=== PATIENT | male | born 1960 | race Caucasian/White ===

== ENCOUNTER 2017-08-03 07:06 | Emergency (ER) | payer BC ==
[2017-08-03] MEDS ORDERED: NS 0.9% 1000 ML* 1,000 ML IV ONE (07:22)
[2017-08-03 07:47] LABS: ABS Basophils 0 10^3/ul (0-0.2); ABS Eosinophils 0.3 10^3/ul (0-0.6); ABS Lymphocytes 1.5 10^3/ul (1.0-4.8); ABS Monocytes 0.8 10^3/ul (0-0.8); ABS Neutrophils 4.6 10^3/ul (1.5-7.7); ABS Nucleated RBC 0 10^3/ul; Eosinophil % 4.6 % (0-6); Hematocrit 43 % (42-52); Hemoglobin 14.9 g/dl (14.0-18.0); Lymphocyte % 21.3 % (25-47); Mean Corpuscular HGB Conc 34 g/dl (31-36); Mean Corpuscular Hemoglobin 31 pg (27-31); Mean Corpuscular Volume 90 fL (80-94); Mean Platelet Volume 8 um3 (7.4-10.4); Nucleated Red Blood Cells % 0; Platelet Count 229 10^3/ul (150-450); Red Blood Count 4.82 10^6/ul (4.0-5.4); Red Cell Distribution Width 13 % (10.5-15); White Blood Count 7.3 10^3/ul (3.5-10.8)
[2017-08-03 08:01] LABS: INR 0.92 (0.77-1.02)
[2017-08-03] MEDS ORDERED: Ibuprofen TAB* 800 MG PO ONE (08:15)
--- NOTE | 2017-08-03 08:34 | RAD ---
HISTORY: Chest pain, shortness of breath COMPARISONS: February 28, 2004 VIEWS: 4: Frontal dual-energy and lateral views of the chest. FINDINGS: CARDIOMEDIASTINAL SILHOUETTE: The cardiomediastinal silhouette is normal. ALFREDO: The alfredo are normal. PLEURA: The costophrenic angles are sharp. No pleural abnormalities are noted. LUNG PARENCHYMA: The lungs are clear. ABDOMEN: The upper abdomen is clear. There is no subphrenic gas. BONES AND SOFT TISSUES: Degenerative changes are noted OTHER: None. IMPRESSION: NO ACTIVE CARDIOPULMONARY DISEASE.
[2017-08-03 09:32] LABS: Urine Appearance Clear; Urine Color Yellow
[2017-08-03 09:33] LABS: Urine Blood Negative (Negative); Urine Ketones Negative (Negative); Urine Protein Negative (Negative); Urine Specific Gravity 1.015 (1.010-1.030); Urine Urobilinogen Negative (Negative)
[2017-08-03 09:51] LABS: EGFR Non-African American 86.8 (>60)
[2017-08-03 12:17] VITALS: BP 123/79
--- NOTE | 2017-08-03 19:52 | ED ---
Kvng Salvador Angela, scribed for Anna Nassar MD on 08/03/17 at 0820 . HPI Chest Pain - HPI Summary HPI Summary: This pt is a 56 y/o male, accompanied by his , presenting to [facility] for chest pain x2 weeks. Pt describes his pain under his left breast anteriorly. Pt notes his pain is aggravated with deep breaths. He describes it as feeling "like a broken rib or cartilage" and "like a nerve muscle." Pt states that in the shower today he couldn't breathe. reports that around [place] time, pt was lifting a tool box and additionally states the pt yesterday was pulling with both hands the starter cord of a snow mobile. Pt denies abd pain, cough, rhinorrhea, sinus pain, cold symptoms. Denies calf pain or edema. Pt reports he has been gaining weight lately. He denies smoking. Pt denies hx of blood clots. PMHx: prostate CA, eczema. Pt has Dupixent injections for eczema. He additionally takes anti-histamines, probiotics, and Cilias as needed. The last time he took Cialis was 3 days ago. Surgeries: prostate CA removed a couple of years ago. Allergic to Penicillin (reaction was rash). - History of Current Complaint Chief Complaint: EDGeneral Time Seen by Provider: 08/03/17 07:21 Hx Obtained From: Patient, Family/Operator [employer] - Onset/Duration: Started Weeks Ago, Still Present Timing: Constant, Lasting Weeks Initial Severity: Mild Current Severity: Mild Pain Intensity: 2 Pain Scale Used: 0-10 Numeric Chest Pain Location: Left Anterior Chest Pain Radiates: No Character: Other: - "broken rib cage or cartilage" "nerve muscle" Aggravating Factor(s): Deep Breaths Alleviating Factor(s): Nothing Associated Signs and Symptoms: Positive: Chest Pain. Negative: Swelling, Fever , Cough, Abdominal Pain, Calf Pain/Swelling, URI - Allergy/Home Medications Allergies/Adverse Reactions: Allergies Allergy/AdvReac Type Severity Reaction Status Date / Time Penicillins Allergy Unknown Unknown Verified 05/14/16 07:44 Reaction Details PMH/Surg Hx/FS Hx/Imm Hx Endocrine/Hematology History: Denies: Hx Diabetes, Hx Thyroid Disease Cardiovascular History: Denies: Hx Hypertension Respiratory History: Reports: Hx Asthma - He has been on inhalers in the past for bronchospasm. Denies: Hx Chronic Obstructive Pulmonary Disease (COPD), Hx Lung Cancer, Hx Pneumonia, Hx Pulmonary Embolism GI History: Denies: Hx Gall Bladder Disease, Hx Gastrointestinal Bleed, Hx Ulcer, Hx Urosepsis History: Denies: Hx Kidney Stones, Hx Renal Disease Neurological History: Denies: Hx Dementia, Hx Migraine, Hx Seizures, Hx Transient Ischemic Attacks (TIA) Psychiatric History: Denies: Hx Anxiety, Hx Depression, Hx Schizophrenia, Hx Bipolar Disorder - Cancer History Cancer Type, Location and Year: prostate c/a 2014 - Surgical History Surgery Procedure, Year, and Place: protate CA removal surgery 2014 Infectious Disease History: No Infectious Disease History: Denies: Hx Clostridium Difficile, Hx Hepatitis, Hx Human Immunodeficiency Virus (HIV), Hx of Known/Suspected MRSA, Hx Shingles, Hx Tuberculosis, Hx Known/ Suspected VRE, Hx Known/Suspected VRSA, History Other Infectious Disease, Traveled Outside the [place] in Last 30 Days - Family History Known Family History: Positive: Cardiac Disease, Diabetes - Social History Alcohol Use: Daily Alcohol Amount: 3-4 beers Substance Use Type: Reports: None Smoking Status (MU): Former Smoker Length of Time of Smoking/Using Tobacco: 20 YEARS Have You Smoked in the Last Year: No Review of Systems Constitutional: Other - weight gaining Negative: Fever, Chills Eyes: Negative ENT: Negative Negative: Nasal Discharge Positive: Chest Pain Negative: Cough Negative: Abdominal Pain Negative: Edema, Other - calf pain All Other Systems Reviewed And Are Negative: Yes Physical Exam - Summary Physical Exam Summary: Appearance: Well-appearing, moderate pain distress, Well-nourished Skin: Warm, color reflects adequate perfusion Head: Normal Head/Face inspection Eyes: Conjunctiva clear ENT: Normal ENT inspection Neck: Supple, no nodes, no JVD Respiratory: Lungs clear, Normal breath sounds, no respiratory distress Cardio: RRR, No murmur, pulses normal, brisk capillary refill Chest: pain is not reproducible, pt indicates his pain is under the 5th rib. Abdomen: soft, nontender Bowel sounds: present Musculoskeletal: Strength Intact/ ROM intact. No calf tenderness. 2+ pitting edema bilaterally. Neuro: Alert, muscle tone normal, facial symmetry, speech normal, sensory/motor intact Psychological: Normal Triage Information Reviewed: Yes Vital Signs On Initial Exam: Initial Vitals Temp Pulse Resp BP Pulse Ox 98.6 F 74 16 129/80 94 08/03/17 07:12 08/03/17 07:12 08/03/17 07:12 08/03/17 07:12 08/03/17 07:12 Vital Signs Reviewed: Yes - Nafisa Coma Scale Coma Scale Total: 15 Diagnostics - Vital Signs Vital Signs Temp Pulse Resp BP Pulse Ox 08/03/17 07:40 67 12 123/79 96 08/03/17 07:27 97 08/03/17 07:20 71 96 08/03/17 07:12 98.6 F 74 16 129/80 94 - Laboratory Lab Results: Lab Results 08/03/17 08/03/17 08/03/17 Range/Units 07:34 07:34 07:34 WBC 7.3 (3.5-10.8) 10^3/ul RBC 4.82 (4.0-5.4) 10^6/ul Hgb 14.9 (14.0-18.0) g/dl Hct 43 (42-52) % MCV 90 (80-94) fL MCH 31 (27-31) pg MCHC 34 (31-36) g/dl RDW 13 (10.5-15) % Plt Count 229 (150-450) 10^3/ul MPV 8 (7.4-10.4) um3 Neut % (Auto) 62.8 (38-83) % Lymph % (Auto) 21.3 L (25-47) % [place] % (Auto) 10.8 H (1-9) % Eos % (Auto) 4.6 (0-6) % Baso % (Auto) 0.5 (0-2) % Absolute Neuts (auto) 4.6 (1.5-7.7) 10^3/ul Absolute Lymphs (auto) 1.5 (1.0-4.8) 10^3/ul Absolute Monos (auto) 0.8 (0-0.8) 10^3/ul Absolute Eos (auto) 0.3 (0-0.6) 10^3/ul Absolute Basos (auto) 0 (0-0.2) 10^3/ul Absolute Nucleated RBC 0 10^3/ul Nucleated RBC % 0 INR (Anticoag Therapy) 0.92 (0.77-1.02) APTT 28.7 (26.0-36.3) seconds D-Dimer, Quantitative < 200 (Less Than 230) ng/mL Sodium 137 (133-145) mmol/L Potassium 3.8 (3.5-5.0) mmol/L Chloride 106 (101-111) mmol/L Carbon Dioxide 26 (22-32) mmol/L Anion Gap 5 (2-11) mmol/L BUN 13 (6-24) mg/dL Creatinine Pending Est GFR ( Amer) Pending Est GFR (Non-Af Amer) Pending BUN/Creatinine Ratio Pending Glucose 99 (70-100) mg/dL Lactic Acid (0.5-2.0) mmol/L Calcium 9.1 (8.6-10.3) mg/dL Total Bilirubin 0.60 (0.2-1.0) mg/dL AST 23 (13-39) U/L ALT 21 (7-52) U/L Alkaline Phosphatase 58 (34-104) U/L Total Creatine Kinase 154 (10-223) U/L CK-MB (CK-2) Pending Troponin I 0.00 (<0.04) ng/mL C-Reactive Protein 3.45 (< 5.00) mg/L Total Protein 6.7 (6.4-8.9) g/dL Albumin 4.0 (3.2-5.2) g/dL Globulin 2.7 (2-4) g/dL Albumin/Globulin Ratio 1.5 (1-3) Influenza A (Rapid) (Negative) Influenza B (Rapid) (Negative) 08/03/17 08/03/17 Range/Units 07:34 07:42 WBC (3.5-10.8) 10^3/ul RBC (4.0-5.4) 10^6/ul Hgb (14.0-18.0) g/dl Hct (42-52) % MCV (80-94) fL MCH (27-31) pg MCHC (31-36) g/dl RDW (10.5-15) % Plt Count (150-450) 10^3/ul MPV (7.4-10.4) um3 Neut % (Auto) (38-83) % Lymph % (Auto) (25-47) % [place] % (Auto) (1-9) % Eos % (Auto) (0-6) % Baso % (Auto) (0-2) % Absolute Neuts (auto) (1.5-7.7) 10^3/ul Absolute Lymphs (auto) (1.0-4.8) 10^3/ul Absolute Monos (auto) (0-0.8) 10^3/ul Absolute Eos (auto) (0-0.6) 10^3/ul Absolute Basos (auto) (0-0.2) 10^3/ul Absolute Nucleated RBC 10^3/ul Nucleated RBC % INR (Anticoag Therapy) (0.77-1.02) APTT (26.0-36.3) seconds D-Dimer, Quantitative (Less Than 230) ng/mL Sodium (133-145) mmol/L Potassium (3.5-5.0) mmol/L Chloride (101-111) mmol/L Carbon Dioxide (22-32) mmol/L Anion Gap (2-11) mmol/L BUN (6-24) mg/dL Creatinine Est GFR ( Amer) Est GFR (Non-Af Amer) BUN/Creatinine Ratio Glucose (70-100) mg/dL Lactic Acid 1.3 (0.5-2.0) mmol/L Calcium (8.6-10.3) mg/dL Total Bilirubin (0.2-1.0) mg/dL AST (13-39) U/L ALT (7-52) U/L Alkaline Phosphatase (34-104) U/L Total Creatine Kinase (10-223) U/L CK-MB (CK-2) Troponin I (<0.04) ng/mL C-Reactive Protein (< 5.00) mg/L Total Protein (6.4-8.9) g/dL Albumin (3.2-5.2) g/dL Globulin (2-4) g/dL Albumin/Globulin Ratio (1-3) Influenza A (Rapid) Negative (Negative) Influenza B (Rapid) Negative (Negative) Result Diagrams: 08/03/17 07:34 08/03/17 07:34 Lab Statement: Any lab studies that have been ordered have been reviewed, and results considered in the medical decision making process. - Radiology Chest XR Xray Interpretation: No Acute Changes - IMPRESSION: No active cardiopulmonary disease. Dr. Nassar has reviewed this radiology report. Radiology Interpretation Completed By: Radiologist - EKG 07:46 Cardiac Rate: NL EKG Rhythm: Sinus Rhythm - at [address] Segment: Normal Ectopy: None EKG Interpretation: Nml AVIVCT. Nml QTc. Nml axis. EKG Comparison: Other - no prior to compare. Re-Evaluation - Re-Evaluation First Eval Re-Evaluation Time: 11:45 Comment: I reviewed chest XR and lab results with the pt and . Pt has 2+ pitting edema bilaterally. Chest Pain Course/Dx - Course Course Of Treatment: Pt medications reviewed this visit. In the ED course the pt was given IV fluids and ibuprofen. Chest XR is negative. Labs shows BNP of 494. I discussed pt care with Dr. Menjivar (pt's PCP), who will arrange outpatient work up for elevated BNP. Pt will be discharged home with carisoprodol. He is instructed to follow up with his PCP. Pt was algo given a work note. - Diagnoses Provider Diagnoses: Chest pain - Provider Notifications Discussed Care Of Patient With: Myron Menjivar Time Discussed With Above Provider: 11:53 Instructed by Provider To: Other - I discussed pt care with Dr. Menjivar, pt's PCP , who will arrange outpatient work up for elevated BNP. Discharge - Discharge Plan Condition: Stable Disposition: HOME Prescriptions: Carisoprodol TAB* [Soma TAB*] 350 mg PO TID PRN #12 tab MDD 3 PRN Reason: Pain Patient Education Materials: Chest Pain (ED) Forms: *Work Release Referrals: Myron Menjivar MD [Primary Care Provider] - 2 Days Additional Instructions: You may try the Soma to see if it helps your pain, since it has helped in the past. We have given you a copy of your labs. We talked with Dr. Menjivar. He will see you this week. Call the office for an appt. Return to the ER if you have any new or worsening symptoms. RETURN TO THE EMERGENCY DEPARTMENT FOR ANY NEW OR WORSENING SYMPTOMS. The documentation as recorded by the Kvng perez Angela accurately reflects the service I personally performed and the decisions made by me, Anna Nassar MD.
== END 2017-08-03 12:16 | disposition home or self-care (01) ==
LOC: ED 07:06
DX: R07.9 Chest pain, unspecified (principal); Z87.891 Personal history of nicotine dependence
CPT/HCPCS: 36415; 71046; 80053; 81003; 82550; 82553; 83605; 83880; 84484; 85025; 85379; 85610; 85730; 86140; 87502; 93005; 99283; A9270-GY

== ENCOUNTER 2017-09-12 10:41 | Emergency (ER) | payer BC | END 2017-09-12 11:13 | disposition left against medical advice (07) | LOC: UCEAST 10:41 | DX: J06.9 Acute upper respiratory infection, unspecified (principal); Z53.21 Procedure and treatment not carried out due to patient leaving prior to being seen by health care provider ==

== ENCOUNTER 2019-06-10 08:38 | Emergency (ER) | payer BC ==
--- OUTSIDE RECORDS SUMMARY | 2019-06-10 08:44 | XMS REPORT | Continuity of Care Document ---
:1960 External Reference #:[id number] Author Name Myron Menjivar M.D. (transmitted by agent of provider Tabitha Ag) Address [address] [facility], [place] [address] Care Team Providers Name Role Phone Myron Menjivar III, MD - Internal Care Team Information [facility] Hemanth Lawrence MD - Physical Care Team Information [facility] Problems Active Problems Provider Date Gastroesophageal reflux disease Myron Menjivar M.D. Onset: 11/11/2011 Social History Type Date Description Comments Sex Unknown Smokeless Tobacco quit June 2011 ETOH Use Drinks Alcoholic Beverages Occasionally Tobacco Use Start: Unknown End: Patient is a former smoker quit 2002. Unknown Smoking Status Reviewed: 06/02/19 Patient is a former smoker quit 2002. Allergies, Adverse Reactions, Alerts Active Allergies Reaction Severity Comments Date Penicillin 04/28/2011 Medications Active Medications SIG Qnty Indications Ordering Provider Date Probiotic Acidophilus 1 by mouth once Unknown a day Capsules Acetaminophen Extra as needed Unknown Strength 500mg Tablets Advil 2 every 4 hours Unknown 200mg Capsules prn Dupixent Unknown 300mg/2ML Soln Prefill Syringe Benzonatate one by mouth 14caps Myron Menjivar, 200mg Capsules three times M.D. daily as needed for cough Influenza Virus Vaccine Unknown Injection Immunizations CPT Code Status Date Vaccine Lot # [id number] Given 04/24/2019 Influenza Virus Vaccine, Quadrivalent, Split, Preservative Free [id number] Given 04/23/2018 Influenza Virus Vaccine, Quadrivalent, Split, Preservative Free [id number] Given 05/16/2012 Fluvirin Im 3Yrs And Older [id number] Given 07/19/2008 Tetanus And Diptheria (Td) For Adult Use Preservative Free 62567 Given 06/08/2008 Influenza Virus 3Yrs & Over Vital Signs Date Vital Result Comment 06/02/2019 11:41am Height 64 inches 5'4" Weight 213.00 lb Heart Rate 84 /min BP Systolic Sitting 134 mmHg BP Diastolic Sitting 88 mmHg Body Temperature 98.3 F O2 % BldC Oximetry 93 % BMI (Body Mass Index) 36.6 kg/m2 09/17/2017 11:32am Weight 204.00 lb Heart Rate 75 /min BP Systolic Sitting 115 mmHg BP Diastolic Sitting 82 mmHg Body Temperature 97.4 F O2 % BldC Oximetry 97 % Results Test Acquired Date Facility Test Result H/L Range Note Laboratory test 04/14/2019 [facility] PSA Diagnostic < 0.008 Normal 0-4.[address] ng/[place] [address] [phone] Laboratory test 12/22/2018 [facility] Surgical SEE RESULT [address] [place] [address] [phone] 1 Serum levels of PSA measured using the Marcio Hoa DXI Hybritech immunoassay should not be interpreted as absolute evidence of the presence or absence of disease. The PSA value should be used in conjunction with other pertinent clinical diagnostic procedures. A PSA value in the range of 0.1 to 0.6 ng/ml is indeterminate if being used as an indicator of recurrent or residual disease. The values obtained with different assay methods or kits cannot be used interchangeably. 2 SEE RESULT BELOW Name: DAVID SEVILLA : [address]: Taj Bennett DO Acct: [id number] Unit: [id number] AGE: 58 Location: [facility] Re12/22/18 SEX: M Status: DEP REF SPEC: [id number] LASHANDA: 12/22/18- KITA DR: Taj Bennett DO REQ: [id number] RECD: 12/22/18135 STATUS: BRENT LLANOS DR: Myron Menjivar III, MD _ ORDERED: LEVEL 4/2 FINAL DIAGNOSIS 1. Colon, sigmoid, biopsy: -- Mild to moderate chronic active colitis. See comment. -- No dysplasia identified. 2. Colon, rectum, biopsy: -- Large intestinal mucosa with mild architectural disorder and lamina propria muciphages compatible with repair. -- No active colitis identified. -- No dysplasia identified. Comment: Part 1 demonstrates increased lamina propria lymphoplasmacytic infiltrate with mild to marked architectural disorder compatible with repair. Patchy acute colitis with cryptitis is noted. No crypt abscesses or granulomas are identified. No dysplasia is identified. Part 2 demonstrates features of a largely resolved insult. Correlation with clinical and colonoscopic findings is recommended. CLINICAL HISTORY Rectal bleeding PRE-OPERATIVE DIAGNOSIS 1) For sigmoid colon colitis CONTINUED ON NEXT PAGE DEPARTMENT OF PATHOLOGY, [address] [place] [address] Syed Irizarry M.D. Director [facility] # [id number] RUN DATE: 12/23/18 [facility] LAB LIVE PAGE 2 Patient: DAVID SEVILLA [id number] (Continued) POST-OPERATIVE DIAGNOSIS (Continued) POST-OPERATIVE DIAGNOSIS Sigmoidoscopy: to sigmoid proximal; scattered colitis sigmoid; normal proximal; scattered colitis rectal; biopsy; internal hemorrhoids GROSS DESCRIPTION 1. The specimen is received in formalin labeled, Sigmoid Colon Biopsy, and consists of a 0.6 x 0.6 x 0.2 cm aggregate of dougherty-red irregular soft tissue fragments which is submitted entirely in one cassette. 2. The specimen is received in formalin labeled, Rectal Biopsy, and consists of a 0.6 x 0.4 x 0.2 cm aggregate of dougherty-pink irregular soft tissue fragments which is submitted entirely in one cassette. Signed by and Reported on: Syed Irizarry MD 02/03 1325 END OF REPORT DEPARTMENT OF PATHOLOGY, [address] [place] [address] Syed Irizarry M.D. Director [facility] # [id number] Procedures Date Code Description Status 12/22/2018 [id number] Colonoscopy Completed 10/12/2016 [id number] Colonoscopy Completed 09/16/2011 [id number] Colonoscopy Completed Medical Devices Description No Information Available Encounters Description No Information Available Assessments Date Code Description Provider 06/02/2019 J20.9 Acute bronchitis, unspecified Myron Menjivar M.D. Plan of Treatment 06/02/2019 - Myron Menjivar M.D.J20.9 Acute bronchitis, unspecifiedComments: Likely viral; continue rest, fluids, OTC cough Rx, analgesics as needed. Albuterol inhaler suggested 2-3x/day for slight wheezing and Rx for Benzonatate for cough sent inFollow up:prn if sx persist/worsen Functional Status Description No Information Available Mental Status Description No Information Available Referrals Description No Information Available
[2019-06-10 08:50] VITALS: BP 134/88
--- NOTE | 2019-06-10 09:26 | UC ---
Respiratory Complaint HPI - HPI Summary HPI Summary: 3 weeks of harsh bronchial cough, no fevers, has tried claritin, albuterol and tessalon with out much relief - History of Current Complaint Chief Complaint: UCRespiratory Stated Complaint: COUGH Time Seen by Provider: 06/10/19 08:51 Hx Obtained From: Patient Onset/Duration: Sudden Onset, Lasting Weeks - 3, Still Present Timing: Constant Pain Intensity: 7 Pain Scale Used: 0-10 Numeric Character: Cough: Productive Aggravating Factors: Allergens, Deep Breaths Alleviating Factors: Bronchodilator Associated Signs And Symptoms: Positive: Pleuritic Chest Pain - Allergies/Home Medications Allergies/Adverse Reactions: Allergies Allergy/AdvReac Type Severity Reaction Status Date / Time Penicillins Allergy Unknown Verified 06/10/19 08:50 Reaction Details PMH/Surg Hx/FS Hx/Imm Hx Previously Healthy: No Respiratory History: Asthma GI/ History: Diverticulitis Cancer History: Prostate Cancer Other History Of: Negative For: HIV, Hepatitis B, Hepatitis C - Surgical History Surgical History: Yes Surgery Procedure, Year, and Place: protate CA removal surgery 2014 - Family History Known Family History: Positive: None, Cardiac Disease, Diabetes - Social History Occupation: Employed Full-time Lives: With Family Alcohol Use: Daily Alcohol Amount: 3-4 beers Substance Use Type: None Smoking Status (MU): Former Smoker Length of Time of Smoking/Using Tobacco: 20 YEARS Have You Smoked in the Last Year: No When Did the Patient Quit Smoking/Using Tobacco: 10 YEARS Review of Systems All Other Systems Reviewed And Are Negative: Yes Constitutional: Positive: Negative Skin: Positive: Negative Eyes: Positive: Negative ENT: Positive: Negative Respiratory: Positive: Cough Cardiovascular: Positive: Negative Gastrointestinal: Positive: Negative Genitourinary: Positive: Negative Motor: Positive: Negative Neurovascular: Positive: Negative Musculoskeletal: Positive: Negative Neurological: Positive: Negative Psychological: Positive: Negative Is Patient Immunocompromised?: No Physical Exam Triage Information Reviewed: Yes Appearance: Well-Appearing, No Pain Distress, Well-Nourished Vital Signs: Initial Vital Signs Temp 99 F 06/10/19 08:47 Pulse 75 06/10/19 08:47 Resp 16 06/10/19 08:47 BP 134/88 06/10/19 08:47 Pulse Ox 100 06/10/19 08:47 Vital Signs Reviewed: Yes Eye Exam: Normal Eyes: Positive: Conjunctiva Clear ENT Exam: Normal ENT: Positive: Normal ENT inspection, Hearing grossly normal, Pharynx normal, TMs normal, Uvula midline. Negative: Nasal congestion, Nasal drainage, Tonsillar swelling, Trismus, Muffled voice, Hoarse voice, Dental tenderness, Sinus tenderness Dental Exam: Normal Neck exam: Normal Neck: Positive: Supple, Nontender, No Lymphadenopathy Respiratory Exam: Normal Respiratory: Positive: Chest non-tender, Lungs clear, Normal breath sounds, No respiratory distress, No accessory muscle use Cardiovascular Exam: Normal Cardiovascular: Positive: RRR, No Murmur, Pulses Normal, Brisk Capillary Refill Musculoskeletal Exam: Normal Musculoskeletal: Positive: Strength Intact, ROM Intact, No Edema Neurological Exam: Normal Neurological: Positive: Alert, Muscle Tone Normal Psychological Exam: Normal Skin Exam: Normal Respiratory Course/Dx - Course Course Of Treatment: continue alkbuterol an dtessalon,, increase fluids, burst dose of prednisone, zithromax and follow with pcp prn - Differential Dx/Diagnosis Provider Diagnosis: Bronchospasm with bronchitis, acute Discharge ED - Sign-Out/Discharge Documenting (check all that apply): Patient Departure All imaging exams completed and their final reports reviewed: No Studies - Discharge Plan Condition: Stable Disposition: HOME Prescriptions: Azithromycin TAB* [Zithromax TAB (Z-EZEKIEL) 250 mg #6 tabs] 2 tab PO .TODAY, THEN 1 DAILY #1 ezekiel Benzonatate CAP* [Tessalon 100 MG CAP*] 100 mg PO TID PRN #40 cap PRN Reason: Cough predniSONE TAB* [Deltasone 20 MG TAB*] 20 mg PO DAILY #12 tab Patient Education Materials: Bronchospasm (ED), Acute Cough (ED) Referrals: Myron Menjivar MD [Primary Care Provider] - If Needed - Billing Disposition and Condition Condition: STABLE Disposition: Home - Attestation Statements Provider Attestation: I was available for consult. This patient was seen by the KASSIE. The patient was not presented to , seen by or examined by md -Anayeli Ham MD
== END 2019-06-10 09:30 | disposition home or self-care (01) ==
LOC: UCEAST 08:38
DX: J45.909 Unspecified asthma, uncomplicated (principal); J20.9 Acute bronchitis, unspecified; Z88.0 Allergy status to penicillin; Z85.46 Personal history of malignant neoplasm of prostate; Z87.891 Personal history of nicotine dependence
CPT/HCPCS: 99212; G0463